=== PATIENT | male | born 1985 | race Hispanic/Latino ===

== ENCOUNTER 2017-06-19 09:34 | Emergency (ER) | payer BC ==
[2017-06-19 09:35] VITALS: BMI 29.2
[2017-06-19 09:55] VITALS: RESP 18; TEMP 98.2
[2017-06-19] MEDS ORDERED: Sodium Chloride 0.9% 1,000 ML IV STA ×2 (10:02→11:55)
--- NOTE | 2017-06-19 10:08 | ED PDOC ---
Arrival/HPI - General Chief Complaint: GI Problem Time Seen by Provider: 06/19/17 09:37 Historian: Patient - History of Present Illness Narrative History of Present Illness (Text): 06/19/17 10:05 This 32 yo male with pmh dm, presents to this ED c/o nausea, vomiting, diarrhea , and abdominal pain x 5 days. Patient stated he saw his pmd who ordered labs. Patient was contacted by doctor's office recommending patient to go to ED due to elevated pancreatic enzymes. Denies fever, sob, cp, rectal bleeding, recent travel, or sick contact. Time/Duration: Other (5 days) Quality: Aching Context: Home Past Medical History - Provider Review Nursing Documentation Reviewed: Yes - Infectious Disease Hx of Infectious Diseases: None - Tetanus Immunization Tetanus Immunization: Unknown - Reproductive Currently : No - Endocrine/Metabolic Hx Diabetes Mellitus Type 2: Yes - Psychiatric Hx Depression: No Hx Emotional Abuse: No Hx Physical Abuse: No Hx Substance Use: No - Past Surgical History Past Surgical History: No Previous - Anesthesia Hx Anesthesia: No Hx Anesthesia Reactions: No Hx Malignant Hyperthermia: No - Suicidal Assessment Feels Threatened In Home Enviroment: No Family/Social History - Physician Review Nursing Documentation Reviewed: Yes Family/Social History: No Known Family HX Smoking Status: Never Smoked Hx Alcohol Use: Yes Hx Substance Use: No Hx Substance Use Treatment: No Allergies/Home Meds Allergies/Adverse Reactions: Allergies No Known Allergies Allergy (Verified 01/02/14 07:10) Home Medications: Home Meds Medication Instructions Recorded Confirmed Canagliflozin [Invokana] 300 mg PO DAILY 06/19/17 06/19/17 Dulaglutide [Trulicity] 1.5 mg SC WM 06/19/17 06/19/17 Glimepiride [amaRYL] 4 mg PO BID 06/19/17 06/19/17 Lisinopril [Zestril] 2.5 mg PO DAILY 06/19/17 06/19/17 Pioglitazone [Actos] 15 mg PO DAILY 06/19/17 06/19/17 Rosuvastatin Calcium [Crestor] 10 mg PO DAILY 06/19/17 06/19/17 Review of Systems - Review of Systems Constitutional: Normal. absent: Fatigue, Weight Change, Fevers Eyes: Normal ENT: Normal Respiratory: Normal. absent: SOB, Cough Cardiovascular: Normal Gastrointestinal: Normal, Abdominal Pain, Diarrhea, Nausea, Vomiting. absent: Hematochezia Genitourinary Male: Normal Musculoskeletal: Normal Skin: Normal Neurological: Normal. absent: Headache, Dizziness Endocrine: Normal Hemo/Lymphatic: Normal Psychiatric: Normal Physical Exam Vital Signs Temp Pulse Resp BP Pulse Ox 06/19/17 11:21 89 18 130/89 97 06/19/17 09:35 98.2 F 99 H 18 131/99 H 99 Temperature: Afebrile Blood Pressure: Normal Pulse: Regular Respiratory Rate: Normal Appearance: Positive for: Well-Appearing, Non-Toxic, Comfortable Pain Distress: None Mental Status: Positive for: Alert and Oriented X 3 - Systems Exam Head: Present: Atraumatic, Normocephalic Pupils: Present: PERRL Extroacular Muscles: Present: EOMI Conjunctiva: Present: Normal Mouth: Present: Moist Mucous Membranes Neck: Present: Normal Range of Motion Respiratory/Chest: Present: Clear to Auscultation, Good Air Exchange. No: Respiratory Distress, Accessory Muscle Use Cardiovascular: Present: Regular Rate and Rhythm, Normal S1, S2. No: Murmurs Abdomen: Present: Tenderness (mild LLQ tenderness), Normal Bowel Sounds. No: Distention, Peritoneal Signs, Rebound, Guarding Back: Present: Normal Inspection. No: CVA Tenderness Upper Extremity: Present: Normal Inspection, Normal ROM, NORMAL PULSES, Neurovascularly Intact, Capillary Refill < 2s. No: Cyanosis, Edema Lower Extremity: Present: Normal Inspection, NORMAL PULSES, Normal ROM, Neurovascularly Intact, Capillary Refill < 2 s. No: Edema, CALF TENDERNESS Neurological: Present: GCS=15, CN II-XII Intact, Speech Normal, Motor Func Grossly Intact, Normal Sensory Function, Normal Cerebellar Funct, Gait Normal Skin: Present: Warm, Dry, Normal Color. No: Rashes Psychiatric: Present: Alert, Oriented x 3, Normal Insight, Normal Concentration Medical Decision Making ED Course and Treatment: 06/19/17 12:20 Re-evaluation. Patient feels better. Discussed results and plan with patient who expresses understanding. Counseling was provided regarding the diagnosis and prognosis. All questions answered and there is agreement with the plan to discharge home with instructions. Patient stable for discharge. Return if symptoms persist or worsen. Re-evaluation Time: 12:20 Reassessment Condition: Re-examined, Improved - Lab Interpretations Lab Results: 06/19/17 10:10 06/19/17 10:10 Lab Results 06/19/17 11:29: Urine Color Yellow, Urine Appearance Clear, Urine pH 6.0, Ur Specific [place] 1.010, Urine Protein Negative, Urine Glucose (UA) >=1000, Urine Ketones Negative, Urine Blood Negative, Urine Nitrate Negative, Urine Bilirubin Negative, Urine Urobilinogen 0.2, Ur Leukocyte Esterase Negative 06/19/17 10:10: Sodium 141, Potassium 4.2, Chloride 105, Carbon Dioxide 26, Anion Gap 14, BUN 13, Creatinine 0.7, Est GFR ( Amer) > 60, Est GFR (Non- Af Amer) > 60, Random Glucose 151 H, Calcium 9.1, Total Bilirubin 1.7 H, AST 24 , ALT 40, Alkaline Phosphatase 40, Total Protein 7.3, Albumin 4.2, Globulin 3.1 , Albumin/Globulin Ratio 1.3, Amylase 146 H, Lipase 108 06/19/17 10:10: WBC 6.3, RBC 5.50, Hgb 16.8, Hct 46.1, MCV 83.8, MCH 30.5, MCHC 36.4, RDW 12.2, Plt Count 199, MPV 9.9, Gran % 67.0, Lymph % (Auto) 22.3, [place] % (Auto) 4.9, Eos % (Auto) 5.5 H, Baso % (Auto) 0.3, Gran # 4.24, Lymph # 1.4, [place] # 0.3, Eos # 0.4, Baso # 0.02 I have reviewed the lab results: Yes Interpretation: No clinic. lab abnormalty - RAD Interpretation Narrative RAD Interpretations (Text): 06/19/17 11:49 Accession No. : [id number] Patient Name / ID : SILVIA SARAVIA / [id number] Exam Date : 06/19/2017 10:49:01 ( Approved ) Study Comment : Sex / Age : M / 32Y Creator : Rudy Araujo MD Dictator : Rudy Araujo MD Buckle Coverer : Organic Chemistry Teacher : Rudy Araujo MD Approver2 : Report Date : 06/19/2017 11:29:39 My Comment : PROCEDURE: CT Abdomen and Pelvis with contrast HISTORY: LLQ abd. pain COMPARISON: None. TECHNIQUE: Contrast dose: 100 cc of Omni 350 Radiation dose: Total exam DLP = 841 mGy-cm. This CT exam was performed using one or more of the following dose reduction techniques: Automated exposure control, adjustment of the mA and/or kV according to patient size, and/or use of iterative reconstruction technique. FINDINGS: LOWER THORAX: Unremarkable. LIVER: Unremarkable. No gross lesion or ductal dilatation. GALLBLADDER AND BILE DUCTS: Unremarkable. PANCREAS: Unremarkable. No gross lesion or ductal dilatation. SPLEEN: Unremarkable. ADRENALS: Unremarkable. No mass. KIDNEYS AND URETERS: Unremarkable. No hydronephrosis. No solid mass. VASCULATURE: Unremarkable. No aortic aneurysm. BOWEL: Unremarkable. No obstruction. No gross mural thickening. APPENDIX: Normal appendix. PERITONEUM: Unremarkable. No free fluid. No free air. LYMPH NODES: Unremarkable. No enlarged lymph nodes. BLADDER: Unremarkable. REPRODUCTIVE: Unremarkable. BONES: No acute fracture. OTHER FINDINGS: None. IMPRESSION: No acute intra-abdominal findings Radiology Orders: 06/19/17 10:03 ABD & PELVIS IV CONTRAST ONLY [CT] Stat - Medication Orders Current Medication Orders: Sodium Chloride (Sodium Chloride 0.9%) 1,000 mls @ 999 mls/hr IV .Q1H1M STA Stop: 06/19/17 12:55 Discontinued Medications Famotidine (Pepcid) 20 mg IVP STAT STA Stop: 06/19/17 10:03 Last Admin: 06/19/17 10:26 Dose: 20 mg Sodium Chloride (Sodium Chloride 0.9%) 1,000 mls @ 1,000 mls/hr IV .Q1H STA Stop: 06/19/17 11:01 Last Admin: 06/19/17 10:26 Dose: 1,000 mls/hr Iohexol (Omnipaque 350 100 Ml) Confirm Administered Dose 350 mg .ROUTE .STK-MED ONE Stop: 06/19/17 10:46 Ondansetron HCl (Zofran Inj) 4 mg IVP STAT STA Stop: 06/19/17 10:03 Last Admin: 06/19/17 10:27 Dose: 4 mg Ondansetron HCl (Zofran Inj) 4 mg IVP STAT STA Stop: 06/19/17 11:58 Trimethoprim/Sulfamethoxazole (Bactrim Ds Tab) 1 tab PO STAT STA PRN Reason: Protocol Stop: 06/19/17 11:57 Disposition/Present on Arrival - Present on Arrival Any Indicators Present on Arrival: No History of DVT/PE: No History of Uncontrolled Diabetes: No Urinary Catheter: No History of Decub. Ulcer: No History Surgical Site Infection Following: None - Disposition Have Diagnosis and Disposition been Completed?: Yes Diagnosis: Nonspecific abdominal pain, Diarrhea Disposition: HOME/ ROUTINE Disposition Time: 12:21 Patient Plan: Discharge Condition: GOOD Discharge Instructions (ExitCare): Abdominal Pain (ED), Acute Diarrhea (ED) Additional Instructions: Call private doctor for follow up visit in 1-2 days. Drink Pedialyte when you have diarrhea. Eat bread, potato, pasta, rice, saltine crackers, soups. Avoid tomato sauce, spicy food, dairy products, fatty meals. Take medication as instructed. Return to emergency if symptoms worsen. Prescriptions: Atropine/Diphenoxylate [Lonox 0.025 MG-2.5 MG] 1 tab PO Q6H PRN #12 tab PRN Reason: Diarrhea Ondansetron ODT [Zofran ODT] 4 mg PO Q4H PRN #15 odt PRN Reason: Nausea/Vomiting Sulfamethoxazole/Trimethoprim [Bactrim DS 800 mg-160 mg] 1 tab PO BID #10 tab Referrals: Joanne Nichole DO [Primary Care Provider] - Follow up with primary Forms: [employer] ([place]), WORK NOTE
[2017-06-19 10:26] LABS: ADD MANUAL DIFF? NO
[2017-06-19 10:30] LABS: BASO # 0.02 K/mm3 (0.0-2.0); BASO % 0.3 % (0.0-3.0); EOS # 0.4 (0.0-0.7); EOS % 5.5 % (1.5-5.0); GRAN # 4.24 (1.4-6.5); HEMATOCRIT 46.1 % (42.0-52.0); LYMPH # 1.4 (1.2-3.4); LYMPH % 22.3 % (22.0-35.0); MEAN CELL VOLUME 83.8 fL (80.0-105.0); MEAN CORPUSCULAR HEMOGLOBIN 30.5 pg (25.0-35.0); MEAN CORPUSCULAR HGB CONC 36.4 g/dl (31.0-37.0); MEAN PLATELET VOLUME 9.9 fl (7.0-11.0); MONO # 0.3 (0.1-0.6); MONO % 4.9 % (1.0-6.0); PLATELET COUNT 199 10^3/uL (120.0-450.0); RED CELL DISTRIBUTION WIDTH 12.2 % (11.5-14.5); WHITE BLOOD COUNT 6.3 10^3/ul (4.5-11.0)
[2017-06-19 10:40] LABS: ALB/GLOB RATIO 1.3 (1.1-1.8); ALKALINE PHOSPHATASE 40 U/L (38-133); ALT/SGPT 40 U/L (7-56); AMYLASE 146 U/L (35-125); AST/SGOT 24 U/L (15-59); BILIRUBIN,TOTAL 1.7 mg/dL (0.2-1.3); BLOOD UREA NITROGEN 13 mg/dL (7-21); CALCIUM 9.1 mg/dL (8.4-10.5); CARBON DIOXIDE 26 mmol/L (21-33); CHLORIDE 105 mmol/L (95-110); GFR AFRICAN-AMERICAN > 60; GLUCOSE,RANDOM 151 mg/dL (70-110); LIPASE 108 U/L (23-300); POTASSIUM 4.2 mmol/L (3.6-5.0); SODIUM 141 mmol/L (132-148); TOTAL PROTEIN 7.3 g/dL (5.8-8.3)
[2017-06-19] MEDS ORDERED: Iohexol 350 MG/100 ML VIAL ONE (10:45)
--- NOTE | 2017-06-19 11:31 | CT ---
PROCEDURE: CT Abdomen and Pelvis with contrast HISTORY: LLQ abd. pain COMPARISON: None. TECHNIQUE: Contrast dose: 100 cc of Omni 350 Radiation dose: Total exam DLP = 841 mGy-cm. This CT exam was performed using one or more of the following dose reduction techniques: Automated exposure control, adjustment of the mA and/or kV according to patient size, and/or use of iterative reconstruction technique. FINDINGS: LOWER THORAX: Unremarkable. LIVER: Unremarkable. No gross lesion or ductal dilatation. GALLBLADDER AND BILE DUCTS: Unremarkable. PANCREAS: Unremarkable. No gross lesion or ductal dilatation. SPLEEN: Unremarkable. ADRENALS: Unremarkable. No mass. KIDNEYS AND URETERS: Unremarkable. No hydronephrosis. No solid mass. VASCULATURE: Unremarkable. No aortic aneurysm. BOWEL: Unremarkable. No obstruction. No gross mural thickening. APPENDIX: Normal appendix. PERITONEUM: Unremarkable. No free fluid. No free air. LYMPH NODES: Unremarkable. No enlarged lymph nodes. BLADDER: Unremarkable. REPRODUCTIVE: Unremarkable. BONES: No acute fracture. OTHER FINDINGS: None. IMPRESSION: No acute intra-abdominal findings
[2017-06-19 11:37] LABS: URINE BILIRUBIN NEGATIVE (NEGATIVE); URINE BLOOD NEGATIVE (NEGATIVE); URINE GLUCOSE (UA) >=1000 mg/dL (NEGATIVE); URINE KETONE NEGATIVE (NEGATIVE); URINE LEUKOCYTE ESTERASE NEGATIVE Leu/uL (NEGATIVE); URINE PROTEIN NEGATIVE mg/dL (<30 mg/dL); URINE UROBILINOGEN 0.2 E.U./dL (<1 E.U./dL)
[2017-06-19 11:38] LABS: URINE APPEARANCE CLEAR (CLEAR); URINE COLOR YELLOW (YELLOW)
[2017-06-19] MEDS ORDERED: Tmp-Smz 800 mg-160 mg DS Tab PO STA (11:56)
[2017-06-19 12:52] VITALS: BP 128/79; PULSE 74; O2SAT 98
== END 2017-06-19 13:31 | disposition home or self-care (01) ==
LOC: ED 09:34
DX: R10.9 Unspecified abdominal pain (principal); R19.7 Diarrhea, unspecified
CPT/HCPCS: 74177; 80053; 81003; 82150; 83690; 85025; 96374; 96375; 96376; 99283; J2405; J7040; Q9967